=== PATIENT | male | born 1940 | race Caucasian/White ===

== ENCOUNTER 2020-01-02 09:16 | Outpatient (CLI) | payer MEDICARE, OTHER | END 2020-01-02 23:59 | disposition home or self-care (01) | LOC: ROC 09:16 | PROVIDERS: ATTEND Radiology Radiation Oncology | DX: C79.31 Secondary malignant neoplasm of brain (principal); C18.9 Malignant neoplasm of colon, unspecified; C79.51 Secondary malignant neoplasm of bone; C78.00 Secondary malignant neoplasm of unspecified lung; C78.7 Secondary malignant neoplasm of liver and intrahepatic bile duct; E11.9 Type 2 diabetes mellitus without complications; I25.10 Atherosclerotic heart disease of native coronary artery without angina pectoris; E78.5 Hyperlipidemia, unspecified; Z87.891 Personal history of nicotine dependence | CPT/HCPCS: G0463 ==

== ENCOUNTER → 2020-01-05 | Outpatient (CLI) | payer MEDICARE, OTHER ==
[~2020-01-05] MED LIST: GADOTERATE 7.5 MMOL/15 ML SYR ONE
== END | disposition home or self-care (01) ==
LOC: CFH 12:19
PROVIDERS: ATTEND Radiology Radiation Oncology
DX: C79.31 Secondary malignant neoplasm of brain (principal); G93.89 Other specified disorders of brain
CPT/HCPCS: 70553; A9575

== ENCOUNTER 2020-01-17 09:41 | Emergency (ER) | payer MEDICARE, OTHER ==
[~2020-01-17] VITALS: Ht 188 cm; Wt 72.7 kg
--- NOTE | 2020-01-17 10:21 | NUR ---
PATIENT ARRIVES WITH COMPLAINTS OF "CHEST COUGH" STATING FOR 6 DAYS HE HAS HAD INCREASING COUGH. SEEN TODAY BY DR [facility]. HE HAS BRAIN TUMORS THAT ARE UNDERGOING CYBERKNIFE, HE HAD THREE DONE LAST WEEK AND A ONE WAS TO BE DONE TODAY, AND SOME TO BE DONE NEXT WEEK. HE HAS DISCOLORED PURPLE BLE DISTAL FROM [place]. PATIENT WAS 88% ON ROOM AIR PLACED ON TWO LITERS, STATES WEARS TWO LITERS AT HOME. PATIENT UNABLE AND DOESN'T WANT TO GET IN BED, IN WHEELCHAIR ON MONITOR. 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 HE HAS A BROKEN LEFT WRIST FROM A RECENT FALL THAT IS CASTED. HE HAS HISTORY DIABETES, PERIPHERAL NEUROPATHY.
[2020-01-17] MEDS ORDERED: TRAM150C25 PO (10:32)
[2020-01-17] MEDS ORDERED: PREG75CA PO (10:32)
[2020-01-17] MEDS ORDERED: METF500T17 PO (10:32)
--- NOTE | 2020-01-17 10:32 | NUR ---
PATIENT HAZY ON HIS MEDS AND DOSES. UPDATED MEDS THAT HE KNOWS BUT HE IS HAZY TO DOSES AND CAN'T RECALL SOME MEDS.
--- NOTE | 2020-01-17 10:36 | NUR ---
PATIENT IS REFUSING BLOOD WORK, STATES HE ONLY WANTS CHEST XRAY. HE STATES THAT [facility] ONLY WANTS HIM TO HAVE A CHEST XRAY. EXPLAINED THAT HE IS SICK AND S/S COVID AND HE STATES HE THINKS WE ARE WRONG AND IS REFUSING. WILL ALERT
--- NOTE | 2020-01-17 10:48 | NUR ---
PATIENT REFUSED EKG
--- NOTE | 2020-01-17 10:50 | NUR ---
REFUSED LAB FOR BLOOD WORK
[2020-01-17 11:28] VITALS: BP 168/88
--- NOTE | 2020-01-17 11:28 | NUR ---
PATIENT REFUSING CARE, MD SPOKE WITH HIM. WANTING TO LEAVE. WILL HELP PATIENT GET DRESSED.
[2020-01-17 11:37] LABS: RAPID INFLUENZA A Negative (Negative); RAPID INFLUENZA B Negative (Negative)
--- NOTE | 2020-01-17 12:18 | NUR ---
ENCOURAGED PATIENT TO BE SEEN, BUT ADAMENTLY REFUSING. TAKING HIM HOME, GOT HIM IN WHEELCHAIR TO HER. SHE WAS ENCOURAGING HIM TOO, HE REFUSED.
== END 2020-01-17 12:19 | disposition home or self-care (01) ==
LOC: ED 10:42
DX: R09.02 Hypoxemia (principal); Z20.828 Contact with and (suspected) exposure to other viral communicable diseases; R05 Cough; R09.3 Abnormal sputum; E11.9 Type 2 diabetes mellitus without complications
CPT/HCPCS: 71045; 87400; 99284; U0001